=== PATIENT | male | born 1950 | race Caucasian/White ===

== ENCOUNTER 2019-01-26 17:12 | Emergency (ER) | payer OTHER ==
[2019-01-26] MEDS ORDERED: TETANUS & DIPHTHERIA TOX,ADULT 0.5 ML VIAL ONE (18:37)
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
[2019-01-26] MEDS ORDERED: DERMABOND SKIN ADHESIVE TOP ONE (19:22)
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
== END 2019-01-26 19:52 | disposition home or self-care (01) ==
LOC: ER 17:12
PROC: 0JQ10ZZ Repair Face Subcutaneous Tissue and Fascia, Open Approach (ICD-10-PCS; principal; 2019-01-26)
DX: S01.21XA Laceration without foreign body of nose, initial encounter (principal); S02.2XXA Fracture of nasal bones, initial encounter for closed fracture; W22.8XXA Striking against or struck by other objects, initial encounter; I25.2 Old myocardial infarction; Z23 Encounter for immunization
CPT/HCPCS: 70450; 70486; 76377; 90471; 90714; 99284